=== PATIENT | female | born 1990 | race Caucasian/White ===

== ENCOUNTER 2016-12-27 13:41 | Inpatient (IN) | payer BC, OTHER ==
[~2016-12-27] VITALS: Ht 165.1 cm; Wt 108.1 kg
[2016-12-27] VITALS (9 sets, daily range): BP systolic 121–156; BP diastolic 67–83
[~2016-12-27 13:41] MED LIST: Motrin PO; Percocet 5/325,Endoc PO
[2016-12-27] MEDS ORDERED: PRENATAL TABLE1 EAC3 PO (14:18)
[2016-12-27 15:19] LABS: EOSINOPHIL (%) 0.6 % (0-5); EOSINOPHIL COUNT 0.1 K/uL (0-0.3); HEMATOCRIT 38.1 % (36.0-46.0); IMMATURE GRANULOCYTE (%) 0.6 % (0.0-0.7); IMMATURE GRANULOCYTE COUNT 0.1 K/uL; INSTRUMENT ABS NEUTROPHIL CT 8.5 K/uL; LYMPHOCYTE COUNT 1.7 K/uL (1.0-2.8); MCH 28.3 PG (29.0-34.0); MCHC 31.8 G/DL (30.0-36.0); MONOCYTE (%) 8.6 % (3-12); NEUTROPHIL COUNT 8.5 K/uL (1.8-6.4); PLATELET COUNT 158 K/uL (156-360); RBC DIS.WIDTH-CV 14.6 % (11.8-14.6); RBC DIS.WIDTH-SD 47.4 % (39-53); RED BLOOD COUNT 4.28 M/uL (3.80-5.20); WHITE BLOOD COUNT 11.3 K/uL (4.1-10.2)
[2016-12-27 17:42] LABS: METH RESISTANT S AUREUS PCR NEGATIVE (NEGATIVE); PROBE CHECK PASS; SPECIMEN PROCESSING CONTROL PASS
[2016-12-28] VITALS (17 sets, daily range): BP systolic 103–140; BP diastolic 52–82
[2016-12-28] MEDS ORDERED: IBUPROFEN800 MG PO (03:56)
[2016-12-29 07:15] VITALS: BP 136/84
== END 2016-12-29 15:44 | disposition home or self-care (01) | DRG 775 ==
LOC: LDRP-OP 13:41 → 2WEST 13:42 → LDRP-OP 01-22 14:38
PROVIDERS: Midwife; Obstetrics & Gynecology
DX: O41.03X0 Oligohydramnios, third trimester, not applicable or unspecified (principal); O48.0 Post-term pregnancy; Z3A.40 40 weeks gestation of pregnancy; Z68.37 Body mass index [BMI] 37.0-37.9, adult; O71.82 Other specified trauma to perineum and vulva; O99.213 Obesity complicating pregnancy, third trimester; Z37.0 Single live birth; O99.824 Streptococcus B carrier state complicating childbirth; O69.1XX0 Labor and delivery complicated by cord around neck, with compression, not applicable or unspecified; E66.9 Obesity, unspecified
CPT/HCPCS: 85025; 87081; 87641; C1755; G0378; J0595; J2540; J7120